=== PATIENT | male | born 1970 | race Caucasian/White ===

== ENCOUNTER 2021-03-03 10:43 | Emergency (ER) | payer BC ==
[~2021-03-03] VITALS: Ht 175.3 cm; Wt 81.6 kg
== END 2021-03-03 18:58 ==
LOC: ER 10:43
DX: U07.1 COVID-19 (principal); R06.02 Shortness of breath; R05.9 Cough, unspecified; R07.89 Other chest pain; E86.0 Dehydration; E87.8 Other disorders of electrolyte and fluid balance, not elsewhere classified

== ENCOUNTER 2021-03-03 16:00 | Outpatient (CLI) | payer BC | END 2021-03-03 17:00 | disposition home or self-care (01) | LOC: ASH CLINIC 16:00 | PROVIDERS: ATTEND General Practice | DX: Z23 Encounter for immunization (principal) ==